=== PATIENT | female | born 1985 | race Hispanic/Latino ===

== ENCOUNTER 2018-07-07 23:20 | Emergency (ER) | payer BC ==
[2018-07-07 23:26] VITALS: TEMP 98.5
[2018-07-07] MEDS ORDERED: Sodium Chloride 0.9% 1,000 ML IV STA (23:38)
--- NOTE | 2018-07-07 23:54 | ED PDOC ---
HPI: Abdomen Time Seen by Provider: 07/07/18 23:27 Chief Complaint (Nursing): Abdominal Pain Chief Complaint (Provider): Abdominal Pain History Per: Patient History/Exam Limitations: no limitations Onset/Duration Of Symptoms: Days (1x) Current Symptoms Are (Timing): Still Present Severity: Moderate Location Of Pain/Discomfort: Epigastric Associated Symptoms: Nausea, Vomiting (4x episodes (non-bilious non-bloody) this afternoon), Diarrhea (4x episodes watery diarrhea this morning) Additional Complaint(s): 33 year old female with no past medical history presents to the ED with complaints of nausea, vomiting, diarrhea, and abdominal pain that started this morning. Patient states her symptoms started early this morning with 4x episodes of watery diarrhea, then 4x episodes of vomiting (non-bilious, non-bloody) this afternoon. Patient reports feeling dehydrated and states "I may have a stomach bug". Patient reports having epigastric abdominal pain. Patient denies having fevers and recent travel. Of note: Patient started taking augmentin yesterday for a throat infection. PMD: None provided Past Medical History Reviewed: Historical Data, Nursing Documentation, Vital Signs Vital Signs: Last Vital Signs Temp 98.5 F 07/07/18 23:23 Pulse 92 H 07/07/18 23:23 Resp 16 07/07/18 23:23 BP 121/79 07/07/18 23:23 Pulse Ox 98 07/07/18 23:23 - Medical History PMH: No Chronic Diseases - Surgical History Surgical History: No Surg Hx - Family History Family History: States: No Known Family Hx - Home Medications Home Medications: Ambulatory Orders Medication Instructions Recorded Ondansetron ODT [Zofran ODT] 4 mg PO Q8 PRN #12 odt 07/08/18 - Allergies Allergies/Adverse Reactions: Allergies Allergy/AdvReac Type Severity Reaction Status Date / Time No Known Allergies Allergy Verified 07/07/18 23:26 Review of Systems ROS Statement: Except As Marked, All Systems Reviewed And Found Negative Constitutional: Negative for: Fever Gastrointestinal: Positive for: Nausea, Vomiting (4x episodes, non-bilious, non- bloody), Abdominal Pain (epigastric), Diarrhea (4x episodes\\) Physical Exam - Reviewed Nursing Documentation Reviewed: Yes Vital Signs Reviewed: Yes - Physical Exam Appears: Positive for: Well, Non-toxic, No Acute Distress Head Exam: Positive for: ATRAUMATIC, NORMOCEPHALIC Skin: Positive for: Normal Color, Warm, Dry Cardiovascular/Chest: Positive for: Regular Rate, Rhythm, Chest Non Tender Respiratory: Positive for: Normal Breath Sounds. Negative for: Respiratory Distress Gastrointestinal/Abdominal: Positive for: Tenderness (tenderness to palpation of epigastric area). Negative for: Guarding, Rebound Neurologic/Psych: Positive for: Alert, Oriented (3x) - Laboratory Results Result Diagrams: 07/07/18 23:55 07/07/18 23:55 - ECG O2 Sat by Pulse Oximetry: 98 (RA) Pulse Ox Interpretation: Normal Medical Decision Making Medical Decision Makin:27 Initial impression: 33 year old female with nausea, vomiting, diarrhea, and abdominal pain. Patient is well appearing with normal vitals. Differential diagnoses are likely gastroenteritis with gastritis. Low suspicion for acute appendicitis, biliary disease, or any other acute surgical pathologies. Initial plan: * BMP * lipase * liver profile * CBC w/o diff * udip * upreg * IV NS 1,000 ml IV 1,000 mls/hr * pepcid 20 mg IVP * zofran 4mg IVP * reevaluation 100 --Patient significantly improved --Tolerated PO --Abdominal pain improved --Advised plenty of rest, fluids --Advised to followup with primary are Scribe Attestation: Documented byDantua Chua, acting as a scribe for Manoj Perry MD. Provider Scribe Attestation: All medical record entries made by the Scribe were at my direction and personally dictated by me. I have reviewed the chart and agree that the record accurately reflects my personal performance of the history, physical exam, medical decision making, and the department course for this patient. I have also personally directed, reviewed, and agree with the discharge instructions and disposition. Disposition - Clinical Impression Clinical Impression: Gastroenteritis - Disposition Referrals: Juan A Garcia [Outside] Disposition: Routine/Home Disposition Time: :20 Condition: STABLE Prescriptions: Ondansetron ODT [Zofran ODT] 4 mg PO Q8 PRN #12 odt PRN Reason: Nausea/Vomiting Instructions: Viral Gastroenteritis, Adult (DC) Forms: [employer] (Welsh)
[2018-07-08 00:16] LABS: BASO % 0.3 % (0.0-2.0); EOS # 0.1 K/uL (0.0-0.7); EOS % 1.2 % (0.0-4.0); HEMOGLOBIN 13.7 g/dL (12.0-16.0); LYMPH # 1.7 K/uL (1.0-4.3); LYMPH % 16.7 % (20.0-40.0); MEAN CELL VOLUME 92.9 fl (81.0-99.0); MEAN CORPUSCULAR HGB CONC 34.4 g/dL (33.0-37.0); MEAN PLATELET VOLUME 9.3 fl (7.2-11.7); MONO # 0.5 K/uL (0.0-0.8); MONO % 5.2 % (0.0-10.0); NEUT # 7.7 K/uL (1.8-7.0); NEUT % 76.6 % (50.0-75.0); RBC 4.3 Mil/uL (3.80-5.20)
[2018-07-08 00:24] LABS: ALB/GLOB RATIO 1.1 (1.0-2.1); ALBUMIN 4.4 g/dL (3.5-5.0); ALT/SGPT 37 U/L (9-52); AST/SGOT 40 U/L (14-36); BILIRUBIN,DIRECT 0.1 mg/ml (0.0-0.4); BLOOD UREA NITROGEN 5 mg/dl (7-17); CALCIUM 9.5 mg/dL (8.4-10.2); GFR NON-AFRICAN AMERICAN > 60; LIPASE 35 U/L (23-300)
[2018-07-08 01:30] VITALS: BP 118/71; PULSE 75; RESP 22
[2018-07-08 06:58] VITALS: O2SAT 98
== END 2018-07-08 01:29 | disposition home or self-care (01) ==
LOC: H.ER 23:20
DX: K52.9 Noninfective gastroenteritis and colitis, unspecified (principal)
CPT/HCPCS: 80048; 80076; 81025; 83690; 85025; 96361; 96374; 96375; 99284; J2405; J7030